=== PATIENT | female | born 1985 | race Hispanic/Latino ===

== ENCOUNTER 2016-11-10 08:05 | Emergency (ER) | payer SELFPAY ==
[2016-11-10 08:32] VITALS: BP 112/79
[2016-11-10] MEDS ORDERED: VALIUM PO ONE (11:21)
[2016-11-10] MEDS ORDERED: MOTRIN PO ONE (11:22)
--- NOTE | 2016-11-10 11:22 | Emergency Department Report ---
ED Back Pain/Injury HPI - General Chief Complaint: Back Pain/Injury Stated Complaint: LWR BACK PAIN Time Seen by Provider: 11/10/16 11:12 Source: patient Limitations: No Limitations - History of Present Illness Initial Comments: 31-year-old female past medical history migraines, tubal ligation presents with complaint of 2-3 days of back pain. No direct trauma denies any fever or chills no nausea or vomiting no dysuria no increased urinary frequency. States it is somewhat spastic. Denies any hematuria. Patient is ambulatory denies any saddle paresthesias no upper or lower extremity paresthesias reported. Nontoxic appearing. Accompanied by her boyfriend. Complaint: back pain Place: home Severity scale (0 -10): 6 Quality: aching Consistency: constant Worsens With: none Associated Symptoms: denies other symptoms - Related Data Previous Rx's Medication Instructions Recorded Last Taken Type Ibuprofen [Motrin 600 MG tab] 600 mg PO Q6H PRN #30 tablet 11/14/14 Unknown Rx Ibuprofen [Motrin] 800 mg PO Q8HR PRN #40 tablet 01/09/15 Unknown Rx Simethicone 160 mg PO Q6H PRN #30 tab.chew 01/09/15 Unknown Rx oxyCODONE /ACETAMINOPHEN [Percocet 1 tab PO Q6HR PRN #30 tablet 01/09/15 Unknown Rx 5/325] Cyclobenzaprine [Flexeril] 10 mg PO TID PRN #12 tablet 11/10/16 Unknown Rx Naproxen [Naprosyn TAB] 375 mg PO BID PRN #20 tablet 11/10/16 Unknown Rx Allergies Allergy/AdvReac Type Severity Reaction Status Date / Time aspirin Allergy Nausea Verified 01/04/15 10:09 ED Review of Systems ROS: Stated complaint: LWR BACK PAIN Other details as noted in HPI ED Past Medical Hx - Past Medical History Previous Medical History?: Yes Hx Hypertension: No Hx Congestive Heart Failure: No Hx Diabetes: No Hx Deep Vein Thrombosis: No Hx Renal Disease: No Hx Sickle Cell Disease: No Hx Headaches / Migraines: Yes (migraines) Hx Seizures: No Hx Asthma: No Hx COPD: No Hx HIV: No - Surgical History Past Surgical History?: Yes Additional Surgical History: tubaligation - Social History Smoking Status: Never Smoker Substance Use Type: Alcohol, Other - Medications Home Medications: Home Medications Medication Instructions Recorded Confirmed Last Taken Type Ibuprofen [Motrin 600 MG tab] 600 mg PO Q6H PRN #30 tablet 11/14/14 01/09/15 Unknown Rx Ibuprofen [Motrin] 800 mg PO Q8HR PRN #40 tablet 01/09/15 Unknown Rx Simethicone 160 mg PO Q6H PRN #30 tab.chew 01/09/15 Unknown Rx oxyCODONE /ACETAMINOPHEN [Percocet 1 tab PO Q6HR PRN #30 tablet 01/09/15 Unknown Rx 5/325] Cyclobenzaprine [Flexeril] 10 mg PO TID PRN #12 tablet 11/10/16 Unknown Rx Naproxen [Naprosyn TAB] 375 mg PO BID PRN #20 tablet 11/10/16 Unknown Rx ED Physical Exam - General Limitations: No Limitations General appearance: alert, in no apparent distress - Head Head exam: Present: atraumatic, normocephalic - Eye Eye exam: Present: normal appearance, PERRL, EOMI - ENT ENT exam: Present: mucous membranes moist - Neck Neck exam: Present: normal inspection, full ROM - Respiratory Respiratory exam: Present: normal lung sounds bilaterally. Absent: respiratory distress - Cardiovascular Cardiovascular Exam: Present: regular rate, normal rhythm. Absent: systolic murmur, diastolic murmur, rubs, gallop - GI/Abdominal GI/Abdominal exam: Present: soft, normal bowel sounds - Extremities Exam Extremities exam: Present: normal inspection, full ROM - Back Exam Back exam: Present: normal inspection, full ROM (neck flexion and extension lateral rotation intact), paraspinal tenderness (lower back paraspinal tenderness on palpation of the musculature no midline tenderness) - Neurological Exam Neurological exam: Present: alert, oriented X3, CN II-XII intact, normal gait - Psychiatric Psychiatric exam: Present: normal affect, normal mood - Skin Skin exam: Present: warm, dry, intact, normal color. Absent: rash ED Course Vital Signs 11/10/16 08:28 Temperature 97.6 F Pulse Rate 88 Respiratory 20 Rate Blood Pressure 112/79 O2 Sat by Pulse 100 Oximetry ED Medical Decision Making - Medical Decision Making a/p: lower back pain/muscel spasm 1- will provide symptomatic relief with trial of NSAIDS, pt states she has not tried NSAIDS, only tylenol for pain 2- will refer to PMD as pt does not have one and to ortho for f/u and outpt imaging, none needed at this time since pain is atraumatic, no neurovascular deficits on PE, no saddle paraesthesias, no bladder overflow, no bowel incontience. Pt denies any fever, chill, dysruia or IV drug use. Pain likely from chronic degenerative spinal disease. Critical care attestation.: If time is entered above; I have spent that time in minutes in the direct care of this critically ill patient, excluding procedure time. ED Disposition Clinical Impression: Lower back pain Qualifiers: Chronicity: acute Back pain laterality: bilateral Sciatica presence: without sciatica Qualified Code(s): M54.5 - Low back pain Disposition: TO HOME OR SELFCARE Is pt being admited?: No Does the pt Need Aspirin: No Condition: Stable Instructions: Acute Low Back Pain (ED) Prescriptions: Cyclobenzaprine [Flexeril] 10 mg PO TID PRN #12 tablet PRN Reason: Muscle Spasm Naproxen [Naprosyn TAB] 375 mg PO BID PRN #20 tablet PRN Reason: Pain Referrals: [facility] [Provider Group] - 3-5 Days CATHY VAUGHAN MD [Staff Physician] - 3-5 Days Forms: Work/School Release Form(ED), Accompanied Note Time of Disposition: 12:14
[2016-11-10 11:53] LABS: Bilirubin,Urine NEG (Negative); Blood,Urine NEG (Negative); Ketones,Urine NEG (Negative); Leukocyte Esterase,Urine TR (Negative); Mucus,Urine FEW /HPF; Nitrite,Urine NEG (Negative); Protein,Urine <15 mg/dL mg/dL (Negative); RBC,Urine < 1.0 /HPF (0.0-6.0); Urobilinogen,Urine < 2.0 mg/dL (<2.0)
== END 2016-11-10 12:30 | disposition home or self-care (01) ==
LOC: ED 08:05
DX: M54.5 Low back pain (principal); Z79.82 Long term (current) use of aspirin
CPT/HCPCS: 81001; 99283

== ENCOUNTER 2021-01-17 09:45 | Outpatient (CLI) | payer OTHER ==
--- NOTE | 2021-01-17 14:25 | Magnetic Resonance Report ---
MRI PELVIS WITHOUT AND WITH CONTRAST INDICATION / CLINICAL INFORMATION: PELVIC PAIN/ADENOYOSIS. TECHNIQUE: Multiplanar, multisequence series were obtained through the pelvis. COMPARISON: None available. FINDINGS: BOWEL: No significant abnormality. PERITONEUM: No free fluid. No free air. No fluid collection. LYMPH NODES: No significant adenopathy. ARTERIES: No significant abnormality. VEINS: No significant abnormality. URINARY BLADDER: No significant abnormality. REPRODUCTIVE ORGANS: Arcuate morphology of the uterus. Borderline thickening of the posterior junctio nal zone, measuring 11 mm. Anterior junctional zone measures 8 mm. 2 mm cystic structure along the le ft fundus myometrium likely reflects popliteal cyst. No significant abnormal cystic change of the mak ctional zone. ADDITIONAL FINDINGS: Dilated bilateral periuterine vessels. SKELETAL SYSTEM: No significant abnormality. IMPRESSION: 1. Indeterminate borderline thickening of the posterior junctional zone without significant abnormal cystic change. Findings are equivocal for adenomyosis. Continued follow-up is recommended. 2. Bilateral periuterine varices, which may be seen with pelvic congestion syndrome. Signer Name: Sharif Gonsalez MD Signed: 01/17/2021 2:21 PM Workstation Name: [id number]
== END 2021-01-17 09:46 | disposition home or self-care (01) ==
LOC: MRI 09:45
PROVIDERS: ATTEND Obstetrics & Gynecology
DX: I86.2 Pelvic varices (principal); N80.0 Endometriosis of uterus
CPT/HCPCS: 72197; A9575